=== PATIENT | female | born 1975 | race Caucasian/White ===

== ENCOUNTER 2017-10-10 22:57 | Emergency (ER) | payer OTHER, BC ==
[~2017-10-10] VITALS: Ht 160 cm; Wt 81.0 kg
[~2017-10-10 22:57] MED LIST: ACETTAB3 OR; AMOXICILLIN/CL875 MG OR; AMOXICILLIN/CL875 MG PO; AMOXICILLIN500 MG PO; AMOXICILLIN875 MG PO; AUGMENTIN875TAB OR; AUGMENTIN875TAB PO; AZITHROMYCIN500 MG PO; AZO TABS95 MG PO; BENZONATATE200 MG PO; BIOTIN; CELEXA20 M1 OR; CELEXA20 M1 PO; CELEXA20 MG PO; CIPRO500 MG PO; CIPRODEX1 ML AD; CIPROFLOXACN500 MG PO; CITALOPRAM20 MG PO; CLARITIN10 MG PO; CONCEPT DHA OR; DIFLUCAN150 MG OR; FIORICET PO; FISH OIL1000 MG PO; FLEXERIL OR; FLEXERIL PO; FLONASE NASAL50 MCG; FLUARIX QUADRIV1 INJ IM; HYDROCHLOROT12.5 MG OR; HYDROCHLOROT12.5 MG PO; LIBRAX1 CAP OR; LORTAB 10 PO; LORTAB 1010 MG PO; LORTAB 7.57.5 MG PO; LORTAB5 PO; MACRODANTIN100 MG PO; MEDDOSEPAK OR; MOTRIN600 MG OR; MOTRIN600 MG/TAB PO; MOTRIN800 MG PO; MOTRIN800 MG/TAB PO; MUCINEX600 MG PO; MULTI VIT PO; NORA-BE0.35 MG OR; OCELLA1 TAB PO; OMNICEF300 MG OR; ONDANSETRON4 MG PO; PHENERGAN12.5 MG/TA PO; PRENA PO; PRENATAL1 TAB OR; PRILOSEC OTC20 MG OR; PRILOSEC20 MG/CAP PO; PROVERA5 MG PO; PYRIDIUM200 MG PO; QUATREFO PO; ROCEPHIN 1 GM1 GM IM; ROCEPHIN 1 GM1 GM PO; ROCEPHIN 2250 MG/VIA IM; SERTRALINE HCL50 MG PO; SOLU-MEDROL125 MG IM; SPRINTEC 2828 DAY PO; TAM75CAP PO; TESSALON200 MG PO; TYLENOL 500MG TAB PO; VISTARIL25 MG PO; YASMIN 281 TAB OR; YAZ1 TAB; ZARAH OR; ZEGERID1 CA1; ZOFRAN ODT8 MG SL; ZOLOFT25 MG PO
[2017-10-11 00:46] LABS: URINE BILIRUBIN - DIPSTICK NEGATIVE (NEGATIVE); URINE BLOOD DIPSTICK TRACE-INTACT (NEGATIVE); URINE CLARITY CLEAR; URINE COLOR YELLOW; URINE GLUCOSE - DIPSTICK NEGATIVE (NEGATIVE); URINE KETONE NEGATIVE (NEGATIVE); URINE LEUK ESTERASE NEGATIVE (NEGATIVE); URINE NITRITE - DIPSTICK NEGATIVE (Negative); URINE PROTEIN - DIPSTICK NEGATIVE (NEG-TRACE); URINE SPECIFIC GRAVITY >=1.030; URINE UROBILINOGEN - DIPSTICK 0.2 E.U./dL (0.2)
[2017-10-11 01:05] LABS: HEMATOCRIT 42.2 % (37.0-47.0); IMMATURE GRANULOCYTES 0.3 % (0.0-1.0); MEAN CORPUSCULAR HGB 29.5 pG CALC (26.0-32.0); MEAN CORPUSCULAR HGB CONC 33.2 g/L CALC (32.0-36.0); NEUT# 4.4 thou/uL (2.00-7.15); RED BLOOD COUNT 4.74 mill/uL (4.20-5.60); RED CELL DISTRI WIDTH 13.1 % (11.5-15.5)
[2017-10-11 01:12] LABS: ALBUMIN 4.1 g/dL (3.2-5.0); ALKALINE PHOSPHATASE 73 u/l (38-126); ANION GAP 17 (6-22 (CALC)); BILIRUBIN, TOTAL 0.3 mg/dL (0.0-1.4); BUN 13 mg/dL (7-17); BUN/CREATININE RATIO 21 (12-20 (CALC)); CARBON DIOXIDE 25 mmol/l (22-30); CHLORIDE 105 mmol/l (95-108); CREATININE 0.6 mg/dL (0.5-1.0); GFR > 60 ML/MIN (>=60 (CALC)); GFR FOR AFR.AMER. > 60 ML/MIN (>=60 (CALC)); LIPASE 128 u/l (23-300); SGOT/AST 17 u/l (14-36); SGPT/ALT 30 u/l (9-52); SODIUM 144 mmol/l (137-146); TOTAL PROTEIN 7.5 g/dL (6.3-8.2)
[2017-10-11 01:16] LABS: POTASSIUM 3.4 mmol/l (3.5-5.1)
[2017-10-11 01:36] VITALS: BP 132/88
== END 2017-10-11 01:36 | disposition home or self-care (01) | DRG 605 ==
LOC: ED 22:57
PROVIDERS: Family Medicine
DX: S20.219A Contusion of unspecified front wall of thorax, initial encounter (principal); S10.91XA Abrasion of unspecified part of neck, initial encounter; S50.812A Abrasion of left forearm, initial encounter; S30.811A Abrasion of abdominal wall, initial encounter; S16.1XXA Strain of muscle, fascia and tendon at neck level, initial encounter; V49.40XA Driver injured in collision with unspecified motor vehicles in traffic accident, initial encounter

== ENCOUNTER 2017-12-06 12:07 | Emergency (ER) | payer BC ==
[~2017-12-06] VITALS: Ht 160 cm; Wt 80.0 kg
[2017-12-06 12:50] LABS: HEMATOCRIT 45.8 % (37.0-47.0); HEMOGLOBIN 15.1 g/dl (12.0-16.0); IMMATURE GRANULOCYTES 0.2 % (0.0-1.0); MEAN CELL VOLUME 89.6 fL CALC (80.0-100.0); MEAN CORPUSCULAR HGB 29.5 pG CALC (26.0-32.0); NEUT# 3.36 thou/uL (2.00-7.15); RED BLOOD COUNT 5.11 mill/uL (4.20-5.60); RED CELL DISTRI WIDTH 13.2 % (11.5-15.5)
[2017-12-06 12:50] LABS: URINE BLOOD DIPSTICK NEGATIVE (NEGATIVE); URINE COLOR YELLOW; URINE GLUCOSE - DIPSTICK NEGATIVE (NEGATIVE); URINE KETONE NEGATIVE (NEGATIVE); URINE LEUK ESTERASE NEGATIVE (NEGATIVE); URINE NITRITE - DIPSTICK NEGATIVE (Negative); URINE PROTEIN - DIPSTICK NEGATIVE (NEG-TRACE); URINE SPECIFIC GRAVITY 1.025; URINE UROBILINOGEN - DIPSTICK 0.2 E.U./dL (0.2)
[2017-12-06 12:51] LABS: URINE BILIRUBIN - DIPSTICK SMALL (NEGATIVE); URINE CLARITY CLEAR
[2017-12-06 13:07] LABS: ALBUMIN 4.6 g/dL (3.2-5.0); ALKALINE PHOSPHATASE 77 u/l (38-126); AMYLASE 57 u/l (30-110); ANION GAP 15 (6-22 (CALC)); BILIRUBIN, TOTAL 0.6 mg/dL (0.0-1.4); BUN 10 mg/dL (7-17); BUN/CREATININE RATIO 15 (12-20 (CALC)); CARBON DIOXIDE 25 mmol/l (22-30); CHLORIDE 108 mmol/l (95-108); CREATININE 0.7 mg/dL (0.5-1.0); GFR > 60 ML/MIN (>=60 (CALC)); GFR FOR AFR.AMER. > 60 ML/MIN (>=60 (CALC)); LIPASE 270 u/l (23-300); POTASSIUM 3.8 mmol/l (3.5-5.1); SGOT/AST 20 u/l (14-36); SGPT/ALT 28 u/l (9-52); SODIUM 144 mmol/l (137-146); TOTAL PROTEIN 8.5 g/dL (6.3-8.2)
[2017-12-06 14:46] VITALS: BP 119/76
== END 2017-12-06 14:46 | disposition home or self-care (01) | DRG 761 ==
LOC: ED 12:07
DX: N83.201 Unspecified ovarian cyst, right side (principal); R11.2 Nausea with vomiting, unspecified; R19.7 Diarrhea, unspecified; K42.9 Umbilical hernia without obstruction or gangrene
CPT/HCPCS: Q9967

== ENCOUNTER 2018-02-20 17:31 | Emergency (ER) | payer BC ==
[~2018-02-20] VITALS: Ht 160 cm; Wt 84.0 kg
[2018-02-20 18:04] LABS: HEMATOCRIT 47.6 % (37.0-47.0); HEMOGLOBIN 15.7 g/dl (12.0-16.0); IMMATURE GRANULOCYTES 0.1 % (0.0-5.0); MEAN CORPUSCULAR HGB 29.7 pG CALC (26.0-32.0); NEUT# 4.31 thou/uL (2.00-7.15); RED BLOOD COUNT 5.29 mill/uL (4.20-5.60); RED CELL DISTRI WIDTH 12.7 % (11.5-15.5)
[2018-02-20 18:07] LABS: URINE BILIRUBIN - DIPSTICK NEGATIVE (NEGATIVE); URINE BLOOD DIPSTICK TRACE-LYSED (NEGATIVE); URINE CLARITY CLEAR; URINE COLOR YELLOW; URINE GLUCOSE - DIPSTICK NEGATIVE (NEGATIVE); URINE KETONE NEGATIVE (NEGATIVE); URINE LEUK ESTERASE NEGATIVE (NEGATIVE); URINE NITRITE - DIPSTICK NEGATIVE (Negative); URINE PH 5.5 (4.5-8.0); URINE PROTEIN - DIPSTICK NEGATIVE (NEG-TRACE); URINE SPECIFIC GRAVITY >=1.030; URINE UROBILINOGEN - DIPSTICK 0.2 E.U./dL (0.2)
[2018-02-20 18:12] LABS: ALBUMIN 4.5 g/dL (3.2-5.0); ALKALINE PHOSPHATASE 75 u/l (38-126); ANION GAP 16 (6-22 (CALC)); BILIRUBIN, TOTAL 0.5 mg/dL (0.0-1.4); BUN 10 mg/dL (7-17); BUN/CREATININE RATIO 15 (12-20 (CALC)); CARBON DIOXIDE 24 mmol/l (22-30); CHLORIDE 105 mmol/l (95-108); CREATININE 0.7 mg/dL (0.5-1.0); GFR > 60 ML/MIN (>=60 (CALC)); GFR FOR AFR.AMER. > 60 ML/MIN (>=60 (CALC)); LIPASE 167 u/l (23-300); POTASSIUM 4.2 mmol/l (3.5-5.1); SGOT/AST 25 u/l (14-36); SGPT/ALT 27 u/l (9-52); SODIUM 141 mmol/l (137-146); TOTAL PROTEIN 7.9 g/dL (6.3-8.2)
[2018-02-20 19:00] VITALS: BP 135/98
== END 2018-02-20 19:08 | disposition home or self-care (01) | DRG 392 ==
LOC: ED 17:31
DX: R10.13 Epigastric pain (principal); R11.2 Nausea with vomiting, unspecified; R19.7 Diarrhea, unspecified

== ENCOUNTER 2019-08-03 | Emergency (ER) | payer BC ==
[2019-08-03 18:55] LABS: HEMOGLOBIN 14.4 g/dl (12.0-16.0); IMMATURE GRANULOCYTES 0.3 % (0.0-5.0); MEAN CELL VOLUME 89.8 fL CALC (80.0-100.0); MEAN CORPUSCULAR HGB 29.4 pG CALC (26.0-32.0); MEAN CORPUSCULAR HGB CONC 32.7 g/L CALC (32.0-36.0); NEUT# 4.51 thou/uL (2.00-7.15); RED BLOOD COUNT 4.9 mill/uL (4.20-5.60); RED CELL DISTRI WIDTH 13.2 % (11.5-15.5)
[2019-08-03 19:06] LABS: URINE BILIRUBIN - DIPSTICK NEGATIVE (NEGATIVE); URINE BLOOD DIPSTICK TRACE-INTACT (NEGATIVE); URINE COLOR YELLOW; URINE GLUCOSE - DIPSTICK NEGATIVE (NEGATIVE); URINE KETONE NEGATIVE (NEGATIVE); URINE LEUK ESTERASE NEGATIVE (NEGATIVE); URINE NITRITE - DIPSTICK NEGATIVE (Negative); URINE PROTEIN - DIPSTICK NEGATIVE (NEG-TRACE); URINE SPECIFIC GRAVITY >=1.030; URINE UROBILINOGEN - DIPSTICK 0.2 E.U./dL (0.2)
[2019-08-03 19:40] LABS: ALBUMIN 4.3 g/dL (3.2-5.0); ALKALINE PHOSPHATASE 77 u/l (38-126); ANION GAP 11 (6-22 (CALC)); BILIRUBIN, TOTAL 0.5 mg/dL (0.0-1.4); BUN 8 mg/dL (7-17); BUN/CREATININE RATIO 14 (12-20 (CALC)); CARBON DIOXIDE 27 mmol/l (22-30); CHLORIDE 104 mmol/l (95-108); CREATININE 0.6 mg/dL (0.5-1.0); GFR > 60 ML/MIN (>=60 (CALC)); GFR FOR AFR.AMER. > 60 ML/MIN (>=60 (CALC)); LIPASE 86 u/l (23-300); POTASSIUM 3.8 mmol/l (3.5-5.1); SGOT/AST 20 u/l (14-36); SODIUM 138 mmol/l (137-146); TOTAL PROTEIN 7.5 g/dL (6.3-8.2)
[2019-08-03] MEDS ORDERED: TRAMADOL HCL50 MG PO (19:57)
== END 2019-08-03 20:32 | disposition home or self-care (01) | DRG 446 ==
PROVIDERS: Family Medicine
DX: K82.8 Other specified diseases of gallbladder (principal)

== ENCOUNTER 2019-11-06 03:53 | Emergency (ER) | payer BC ==
[~2019-11-06 03:53] MED LIST changes: +TRAMADOL HCL50 MG PO
[2019-11-06 04:24] LABS: HEMATOCRIT 43.5 % (37.0-47.0); HEMOGLOBIN 14.3 g/dl (12.0-16.0); IMMATURE GRANULOCYTES 0.2 % (0.0-5.0); MEAN CELL VOLUME 89.7 fL CALC (80.0-100.0); MEAN CORPUSCULAR HGB 29.5 pG CALC (26.0-32.0); MEAN CORPUSCULAR HGB CONC 32.9 g/dL CAL (32.0-36.0); NEUT# 4.76 thou/uL (2.00-7.15); RED BLOOD COUNT 4.85 mill/uL (4.20-5.60); RED CELL DISTRI WIDTH 12.6 % (11.5-15.5)
[2019-11-06 04:29] LABS: URINE BILIRUBIN - DIPSTICK NEGATIVE (NEGATIVE); URINE BLOOD DIPSTICK TRACE-INTACT (NEGATIVE); URINE COLOR YELLOW; URINE GLUCOSE - DIPSTICK NEGATIVE (NEGATIVE); URINE KETONE NEGATIVE (NEGATIVE); URINE LEUK ESTERASE NEGATIVE (NEGATIVE); URINE NITRITE - DIPSTICK NEGATIVE (Negative); URINE PROTEIN - DIPSTICK NEGATIVE (NEG-TRACE); URINE SPECIFIC GRAVITY 1.025; URINE UROBILINOGEN - DIPSTICK 0.2 E.U./dL (0.2)
[2019-11-06 04:42] LABS: ALBUMIN 4.1 g/dL (3.2-5.0); ALKALINE PHOSPHATASE 86 u/l (38-126); ANION GAP 11 (6-22 (CALC)); BILIRUBIN, TOTAL 0.3 mg/dL (0.0-1.4); BUN 11 mg/dL (7-17); BUN/CREATININE RATIO 18 (12-20 (CALC)); CARBON DIOXIDE 26 mmol/l (22-30); CHLORIDE 105 mmol/l (95-108); CREATININE 0.6 mg/dL (0.5-1.0); GFR > 60 ML/MIN (>=60 (CALC)); GFR FOR AFR.AMER. > 60 ML/MIN (>=60 (CALC)); LIPASE 123 u/l (23-300); POTASSIUM 4.3 mmol/l (3.5-5.1); SGOT/AST 21 u/l (14-36); SODIUM 138 mmol/l (137-146); TOTAL PROTEIN 7.2 g/dL (6.3-8.2)
[2019-11-06 05:04] LABS: AMYLASE < 30 u/l (30-110)
[2019-11-06] MEDS ORDERED: ONDANSETRON4 MG PO (09:41)
[2019-11-06 09:51] VITALS: BP 117/66
== END 2019-11-06 10:19 | disposition home or self-care (01) | DRG 392 ==
LOC: ED 03:53
PROVIDERS: Family Medicine
DX: R10.32 Left lower quadrant pain (principal); R10.2 Pelvic and perineal pain; R11.2 Nausea with vomiting, unspecified
CPT/HCPCS: Q9967

== ENCOUNTER 2020-10-17 20:08 | Emergency (ER) | payer BC ==
[~2020-10-17] VITALS: Ht 160 cm; Wt 86.0 kg
[2020-10-17 21:13] LABS: IMMATURE GRANULOCYTES 0.3 % (0.0-5.0); MEAN CELL VOLUME 90.1 fL CALC (80.0-100.0); MEAN CORPUSCULAR HGB 29.4 pG CALC (26.0-32.0); MEAN CORPUSCULAR HGB CONC 32.6 g/dL CAL (32.0-36.0); NEUT# 1.97 thou/uL (2.00-7.15); RED BLOOD COUNT 4.77 mill/uL (4.20-5.60)
[2020-10-17 21:13] LABS: URINE BILIRUBIN - DIPSTICK NEGATIVE (NEGATIVE); URINE BLOOD DIPSTICK NEGATIVE (NEGATIVE); URINE COLOR YELLOW; URINE GLUCOSE - DIPSTICK NEGATIVE (NEGATIVE); URINE KETONE NEGATIVE (NEGATIVE); URINE LEUK ESTERASE NEGATIVE (NEGATIVE); URINE PROTEIN - DIPSTICK NEGATIVE (NEG-TRACE); URINE SPECIFIC GRAVITY 1.025; URINE UROBILINOGEN - DIPSTICK 0.2 E.U./dL (0.2)
[2020-10-17 21:16] LABS: URINE NITRITE - DIPSTICK NEGATIVE (Negative)
[2020-10-17 21:32] LABS: ALBUMIN 4.1 g/dL (3.2-5.0); ALKALINE PHOSPHATASE 94 u/l (38-126); ANION GAP 10 (6-22 (CALC)); BILIRUBIN, TOTAL 0.3 mg/dL (0.0-1.4); BUN 10 mg/dL (7-17); BUN/CREATININE RATIO 14 (12-20 (CALC)); CARBON DIOXIDE 28 mmol/l (22-30); CHLORIDE 104 mmol/l (95-108); CPK 82 u/l (30-165); CREATININE 0.7 mg/dL (0.5-1.0); GFR > 60 ML/MIN (>=60 (CALC)); GFR FOR AFR.AMER. > 60 ML/MIN (>=60 (CALC)); POTASSIUM 3.5 mmol/l (3.5-5.1); SGOT/AST 24 u/l (14-36); SODIUM 139 mmol/l (137-146); TOTAL PROTEIN 7.5 g/dL (6.3-8.2)
[2020-10-17 21:36] LABS: D-DIMER 0.83 mg/L (0.19-0.60)
[2020-10-17 21:39] LABS: ACT PARTIAL THROMBO TIME 21.9 SECONDS (20.0-32.5); PROTHROMBIN TIME 10.4 SECONDS (9.0-12.5)
[2020-10-17 22:02] LABS: TSH, 3RD GENERATION 2.14 uIU/mL (0.47 - 4.68)
[2020-10-17] MEDS ORDERED: TRAMADOL HCL50 MG PO (23:19)
[2020-10-17 23:27] VITALS: BP 139/78
== END 2020-10-17 23:33 | disposition home or self-care (01) | DRG 556 ==
LOC: ED 20:08
PROVIDERS: Family Medicine
DX: M25.561 Pain in right knee (principal); R60.0 Localized edema; C50.912 Malignant neoplasm of unspecified site of left female breast; Z79.810 Long term (current) use of selective estrogen receptor modulators (SERMs)
CPT/HCPCS: Q9967

== ENCOUNTER 2021-03-07 15:31 | Observation (INO) | payer BC ==
[~2021-03-07] VITALS: Ht 160 cm; Wt 62.0 kg
--- NOTE | 2021-03-07 15:55 | NUR ---
PT AMBULATED TO ROOM STATES SHE HAS PAIN TO RUQ AND NAUSEA
--- NOTE | 2021-03-07 16:32 | NUR ---
PT MEDICATED PER EMAR
[2021-03-07 16:43] LABS: HEMOGLOBIN 14.1 g/dl (12.0-16.0); MEAN CELL VOLUME 91.7 fL CALC (80.0-100.0); MEAN CORPUSCULAR HGB 30.1 pG CALC (26.0-32.0); MEAN CORPUSCULAR HGB CONC 32.8 g/dL CAL (32.0-36.0); NEUT# 3.76 thou/uL (2.00-7.15); RED BLOOD COUNT 4.69 mill/uL (4.20-5.60); RED CELL DISTRI WIDTH 12.7 % (11.5-15.5)
[2021-03-07 17:04] LABS: ALKALINE PHOSPHATASE 75 u/l (38-126); BUN 7 mg/dL (7-17); BUN/CREATININE RATIO 14 (12-20 (CALC)); CHLORIDE 109 mmol/l (95-108); CREATININE 0.5 mg/dL (0.5-1.0); GFR > 60 ML/MIN (>=60 (CALC)); GFR FOR AFR.AMER. > 60 ML/MIN (>=60 (CALC)); LIPASE 65 u/l (23-300); POTASSIUM 3.6 mmol/l (3.5-5.1); SGOT/AST 25 u/l (14-36); SODIUM 138 mmol/l (137-146); TOTAL PROTEIN 7.5 g/dL (6.3-8.2)
[2021-03-07 17:05] LABS: ANION GAP 13 (6-22 (CALC)); BILIRUBIN, TOTAL 0.5 mg/dL (0.0-1.4); CARBON DIOXIDE 20 mmol/l (22-30)
[2021-03-07 17:22] LABS: URINE BILIRUBIN - DIPSTICK NEGATIVE (NEGATIVE); URINE BLOOD DIPSTICK NEGATIVE (NEGATIVE); URINE COLOR YELLOW; URINE GLUCOSE - DIPSTICK NEGATIVE (NEGATIVE); URINE KETONE 15 mg/dL (NEGATIVE); URINE LEUK ESTERASE NEGATIVE (NEGATIVE); URINE PROTEIN - DIPSTICK NEGATIVE (NEG-TRACE); URINE SPECIFIC GRAVITY >=1.030; URINE UROBILINOGEN - DIPSTICK 0.2 E.U./dL (0.2)
[2021-03-07 17:23] LABS: URINE NITRITE - DIPSTICK NEGATIVE (Negative)
--- NOTE | 2021-03-07 17:35 | NUR ---
PT BACK FROM RADIOLOGY
[2021-03-07] MEDS ORDERED: TAMOXIFEN CITRA10 MG PO (18:11)
[2021-03-07] MEDS ORDERED: ESCITALOPRAM OX10 MG PO (18:12)
--- NOTE | 2021-03-07 18:27 | NUR ---
PT C/O HEARTBURN, INFORMED MD
--- NOTE | 2021-03-07 18:55 | NUR ---
REPORT GIVEN TO NIGHTSHIFT RN, PT HAS NO COMPLAINTS AT THIS TIME
--- NOTE | 2021-03-07 19:45 | NUR ---
PT IS FEELING BETTER LESS PAIN W/P/D NO N/V
--- NOTE | 2021-03-07 20:22 | NUR ---
Reassessment of patient completed. No distress noted.
--- NOTE | 2021-03-07 20:45 | NUR ---
PHONE REPORT TO RUSTAM PATIÑO ON MS
--- NOTE | 2021-03-07 20:48 | NUR ---
PT TRANSPORTED TO [facility] VIA IN IMPROVED STABLE CONDITION
[2021-03-07 21:00] VITALS: BP 158/90
--- NOTE | 2021-03-07 22:00 | NUR ---
PATIENT ADMITTED FROM ER VIA WHEELCHAIR WITH ER STAFF IN ATTENDANCE. PATIENT IS AWAKE ALERT AND ORIENTEDX3. PATIENT IS BEING ADMITTED FOR CHOLECYSTITIS. PATIENT UP AND AMBULATING IN THE ROOM-STEADY ON HER FEET. IN TO BR TO VOID WITHOUT ANY DIFFICULTY. STATES THAT SHE DID HAVE BM THIS MORNING AND IT WAS NORMAL. ABD IS SOFT WITH BS+. LUNGS ARE CLEAR. NO PERIPHERAL EDEMA NOTED. TAKING PO FLUIDS WITHOUT ANY DIFFICULTY. WILL BE NPO AT SC FOR POSS OR TOMORROW-CONSULT WITH DR. NEUMANN IN PLACE. PATIENT WITH IV SITE TO RAC-SITE IS HEALTHY WITH GOOD BLOOD RETURN. IVF NS HUNG AND INFUSING AT 125CC/HR. PATIENT ORIENTED TO ROOM AND SURROUNDINGS. INSTRUCTED ON U SE OF NURSE CALL LIGHT SYSTEM AND TV REMOTE. SAFETY PRECAUTIONS REINFORCED. CALL LIGHT IN REACH. WILL CONT TO MONITOR.
--- NOTE | 2021-03-07 23:56 | NUR ---
PATIENT RESTING IN BED AT THIS TIME-NO COMPLAINTS AT THIS TIME. INSTRUCTED NPO AFTER MIDNIGHT FOR POSSIBLE OR TOMORROW-VERBALIZES UNDERSTANDING. ZOSYN HUNG ORDERED AND INFUSING VIA RAC SITE. CALL LIGHT IN REACH. WILL CONT TO MONITOR.
[2021-03-08] VITALS: BP 99/59
[2021-03-08 04:00] VITALS: BP 96/48
--- NOTE | 2021-03-08 04:49 | NUR ---
PATIENT RESTING IN BED AT THIS TIME-APPEARS SLEEPING WITH EYES CLOSED. RESPS ARE EVEN AND UNLABORED. REMAINS NPO FOR POSSIBLE OR THIS MORNING. IVF NS PATENT AND INFUSING VIA RAC SITE AT 125CC/HR. CALL LLIGHT IN REACH. WILL CONT TO MONITOR.
[2021-03-08 07:25] VITALS: BP 118/80
--- NOTE | 2021-03-08 07:25 | NUR ---
PATIENT LAYING IN BED AT THIS TIME. PATIENT IS CURRENTLY NPO. PATIENT IS ALERT AND ORIENTED X 4 PATIENT STATES SHE HAS NO PAIN AT THIS TIME AND FEELS BETTER THAN SHE DID YESTERDAY. PATIENT DENIES ANY NAUSEA AND OR VOMITTING AT THIS TIME. HOSPITALITY HOST DONE SEE INTERVENTIONS. LUNG FUNES ARE CLEAR AT THIS TIME. WILL CONTINUE TO MONITOR.
--- NOTE | 2021-03-08 08:52 | NUR ---
PATIENT MEDICATED AT THIS TIME FOR UPPER RIGHT ABDOMEN PAIN. 15MG OF TORADOL GIVEN IV AT THIS TIME FOR A PAIN OF 5 OUT OF PAIN SCALE OF 0-10. WILL CONTINUE TO MONITOR.
--- NOTE | 2021-03-08 10:00 | NUR ---
PATIENT UP TO SHOWER AT THIS TIME. DENIES ANY NEEDS AND TOLERATED SHOWER WITHOUT HELP.
--- NOTE | 2021-03-08 11:27 | NUR ---
PATIENT RESTING IN BED AT THIS TIME STATES HER PAIN LEVEL IS A 1 OUT OF THE PAIN SCALE OF 0-10. IV ZOYSIN 3.375GRMS HUNG AT THIS TIME. PATIENT REMAINS NPO UNTIL SEEN BY DR. NEUMANN. PATIENT VERBALIZES UNDERSTANDING OF THIS. SIDERAILS ARE UP X2 CALL LIGHT WITHIN REACH.
--- NOTE | 2021-03-08 11:54 | NUR ---
DR. NEUMANN IN TO SEE PATIENT AT THIS TIME. PATIENT WILL BE ALLOWED TO HAVE CLEAR LIQUIDS UP UNTIL MIDNIGHT THE NPO FOR SURGERY TOMORROW.
[2021-03-08 15:32] VITALS: BP 120/68
[2021-03-08 19:05] VITALS: BP 131/61
--- NOTE | 2021-03-08 19:31 | NUR ---
PATIENT RESTING IN BED AT THIS TIME-AWAKE ALERT AND ORIENTEDX3. PATIENT C/O SOME NAUSEA AND MEDICATED WITH ZOFRAN 4MG IVP ORDERED FOR NAUSEA, IVF PATENT AND INFUSING VIA RIGHT AC SITE AT 125CC/HR. SITE REMAINS HEALTHY T THIS TIME. VOIDING QS CLEAR YELLOW URINE IN BR AND STATES THAT SHE DID HAVE LOOSE BM TODAY. LUNGS ARE CLEAR. ABD IS SOFT WITH ACTIVE BS. FOR OR TOMORROW WITH DR. NEUMANN. NPO AFTER MN TONIGHT. SAFETY PRECAUTIONS REINFORCED. CALL LIGHT IN REACH. WILL CONT TO MONITOR.
--- NOTE | 2021-03-08 23:02 | NUR ---
PATIENT RESTING IN BED AT THIS TIME-APPEARS SLEEPING AT THIS TIME. RESPS EVEN AND UNLABORED. IVF NS PATENT AND INFUSING AT 125CC/HR VIA RAC SITE. CALL LIGHT IN REACH. WILL CONT TO MONITOR.
[2021-03-09] VITALS (11 sets, daily range): BP systolic 99–137; BP diastolic 55–86
--- NOTE | 2021-03-09 00:03 | NUR ---
PATIENT RESTING IN BED AT THIS TIME-ZOSYN HUNG ORDERED. PATIENT STATES THAT THE ZOFRAN HELPED WITH HER NAUSEA AND HEADACHE. PATIENT NOW NPO FOR OR TOMORROW AND VERBALIZES UNDERSTANDING. VOIDING QS CLEAR YELLOW URINE IN BR. CALL LIGHT IN REACH. WILL CONT TO MONITOR.
--- NOTE | 2021-03-09 04:30 | NUR ---
PATIENT RESTING IN BED WITH EYES CLOSED. APPEARS SLEEPING WITH EYES CLOSED. REMAINS NPO FOR OR TODAY. IVF NS PATENT AND INFUSING VIA RAC SITE. CALL LIGHT IN REACH. WILL CONT TO MONITOR.
[2021-03-09 05:12] LABS: HEMATOCRIT 38.7 % (37.0-47.0); HEMOGLOBIN 12.7 g/dl (12.0-16.0); IMMATURE GRANULOCYTES 0.3 % (0.0-5.0); MEAN CELL VOLUME 92.4 fL CALC (80.0-100.0); MEAN CORPUSCULAR HGB 30.3 pG CALC (26.0-32.0); MEAN CORPUSCULAR HGB CONC 32.8 g/dL CAL (32.0-36.0); NEUT# 1.58 thou/uL (2.00-7.15); RED BLOOD COUNT 4.19 mill/uL (4.20-5.60); RED CELL DISTRI WIDTH 12.9 % (11.5-15.5)
[2021-03-09 05:28] LABS: ANION GAP 10 (6-22 (CALC)); BUN 5 mg/dL (7-17); BUN/CREATININE RATIO 9 (12-20 (CALC)); CARBON DIOXIDE 21 mmol/l (22-30); CHLORIDE 112 mmol/l (95-108); CREATININE 0.6 mg/dL (0.5-1.0); GFR > 60 ML/MIN (>=60 (CALC)); GFR FOR AFR.AMER. > 60 ML/MIN (>=60 (CALC)); SODIUM 139 mmol/l (137-146)
--- NOTE | 2021-03-09 07:10 | NUR ---
PATIENT RESTING IN BED AT THIS TIME. DENEIS ANY PAIN AT THIS TIME. PATIENT HAS BEEN NPO SINCE MIDNIGHT AEROGRAPHER DONE SEE INTERVENTIONS. LUNG FUNES REMAIN CLEAR. NO NAUSEA OR VOMITTING NOTED. SIDERAILS ARE UP AND CALL LIGHT WITHIN REACH.
--- NOTE | 2021-03-09 12:11 | NUR ---
PATIENT WAITING ON SURGERY AND IS IN STABLE CONDITION STATES HER PAIN LEVEL IS ONLY A 1 AT THIS TIME. WILL CONTINUE TO MONITOR.
[2021-03-09] MEDS ORDERED: FLEXERIL5 M1 PO (13:06)
[2021-03-09] MEDS ORDERED: MULTIVITAMIN1 TA1 (13:08)
[2021-03-09] MEDS ORDERED: HYDROCHLOROT25 MG PO (13:09)
[2021-03-09] MEDS ORDERED: MAXALT10 MG PO (13:11)
--- NOTE | 2021-03-09 14:53 | NUR ---
OR CALLED AT THIS TIME STATED TO PREPARE PATIENT FOR SURGERY AT THIS TIME. PATIENT INFORMED THAT SURGERY WILL BE UP TO TAKE HER. PATIENT REMOVED ALL UNDER GARMENTS AND NO RINGS OR JEWERLY ON PATIENT AT THIS TIME. PATIENT ADVISED TO REMOVE UNDERWARE WELL. PATIENT VITALS TAKEN T. 99.8 P. 73 R. 20 AND BP IS 132/81 AND SPO2 ON ROOM AIR IS 98%.
--- NOTE | 2021-03-09 15:04 | NUR ---
PATIENT TAKEN DOWN TO SURGERY AT THIS TIME.
--- NOTE | 2021-03-09 16:12 | NUR ---
PATIENT REMAINS DOWN IN SURGERY AT THIS TIME.
--- NOTE | 2021-03-09 18:00 | NUR ---
RECEIVED PATIENT BACK FROM PACU AT THIS TIME PATIENT ASSISTED TO BED BY ERNESTO PATIÑO AND VON PATIÑO AND TELECOM SPECIALIST'S. PATIENT THEN ASSISTED TO BEDSIDE COMMODE AND VOIDED 650ML. PATIENT RETURNED BACK TO BED. HAROON LONGORIA ASSESSED ABDOMINAL SURGICAL SITES AND NOTED FOUR LAP SITES 3 ON RIGHT SIDE ABDOMINAL WALL DRESSINGS DRY AND INTACT AND ONE BELOW THE UMBILICUS DRY AND INTACT. PATIENT COMPLAINING OF PAIN "7" OUT OF 10 ON UPPER RIGHT ABD. QUAD 15MG OF TORADOL GIVEN AT THIS TME. AND ICE CHIPS. PATIENT ON 2 LITERS OF 02 AT THIS TIME AND SPO2 IS 98%. BP IS CURRENTLY 137/86 HR OF 86. SIDERAILS ARE UP CALL LIGHT IS WITHIN REACH. PATIENT IV IS PATENT .9NS/AT 125 AN HOUR. WILL CONTINUE TO MONITOR. PATIENT TOLERATING ICE CHIPS AT THIS TIME.
--- NOTE | 2021-03-09 20:00 | NUR ---
PHYSICAL ASSESMENT COMPLETE. PT CURRENTLY C/O PAIN AND DISCOMFORT. dR HENDERSON CONSULTED. MADE MORPHINE AVAILABLE FOR PT. SCHEDULED MEDICATIONS AND PRN MEDICATION ADMINISTERED, SEE E-MAR. PT DENIES ANY NEEDS AT THIS TIME. PLAN OF CARE REVIEWED, PT DENIES QUESTIONS, VERBALIZES UNDERSTANDING. ITEMS WITHIN REACH, BED LOCKED IN LOW POSITION W/ BEDRAILS UP X2. CALL CHOI WITHIN REACH, AGREES TO CALL PRN.
--- NOTE | 2021-03-09 23:39 | NUR ---
PT C/O NAUSEA. IV ZOFRAN PROVIDED. WILL CONTINUE TO MONITOR.
--- NOTE | 2021-03-10 | NUR ---
PT LAYING IN BED WITH EYES CLOSED, APPEARS TO BE SLEEPING, APPEARS COMFORTABLE AND IN NO DISTRESS. RESPIRATIONS REGULAR AND UNLABORED. ITEMS REMAIN WITHIN REACH, CALL CHOI REMAINS WITHIN REACH. BED REMAINS LOCKED AND IN LOW POSITION WITH BEDRAILS UP X2. WILL CONTINUE TO MONITOR.
--- NOTE | 2021-03-10 01:45 | NUR ---
PT EXPERIENCING PAIN. WALKED PT UP AND AND DOWN THE HALLWAY TO ENCOURAGE GI MOVEMENT. PT REPORTS EXERCISE HAS RELEIVED ABDOMINAL PRESSURE. PRN TORADOL GIVEN FOR PAIN. WILL CONTINUE TO MONITOR.
[2021-03-10 04:00] VITALS: BP 112/63
--- NOTE | 2021-03-10 04:12 | NUR ---
PT RESTING IN BED, C/O PAIN AND DISCOMFORT. PRN MEDICATION PROVIDED. RESP EVEN AND UNLABORED. CALL LIGHT IN REACH, CONTINUE TO MONITOR.
[2021-03-10 08:00] VITALS: BP 123/78
--- NOTE | 2021-03-10 08:13 | NUR ---
PT SITTING ON CHAIR EATING BREAKFAST. A&O X4, VITAL SIGNS WERE PERFORMED. PT REPORTS HAVING EXCESS GAS WITH NO DISCOMFORT. CALL LIGHT WITHIN REACH.
--- NOTE | 2021-03-10 09:34 | NUR ---
PT AMBULATING IN HALLWAY. ZOFRAN GIVEN FOR NAUSEA/ PRN TORADOL. STEADY GAIT OBSERVED.
[2021-03-10 11:06] VITALS: BP 133/60
[2021-03-10] MEDS ORDERED: ZOFRAN4 MG/TAB PO (11:25)
[2021-03-10] MEDS ORDERED: HYDROCO/APAP1 TA9 PO ×2 (11:26→13:13)
--- NOTE | 2021-03-10 12:15 | NUR ---
PT SITTING IN CHAIR EATING LUNCH. WAITING TO BE DISCHARGED. NO DISTRESS NOTED. CALL LIGHT IS WITHIN REACH.
--- NOTE | 2021-03-10 13:35 | NUR ---
Discharge instructions given. Patient verbalizes understanding of same. Discharged in stable condition via Wheelchair to Home with staff. All belongings sent with pt. Medications sent to pharmacy; pt advised to call if any problems arise with medications.
== END 2021-03-10 13:35 | disposition home or self-care (01) | DRG 419 ==
LOC: ED 15:31 → ED-I 18:01 → ED 18:17 → MS2 18:18
PROVIDERS: Family Medicine; ADMIT Internal Medicine; ATTEND Internal Medicine
PROC: 0FT44ZZ Resection of Gallbladder, Percutaneous Endoscopic Approach (ICD-10-PCS; principal; 2021-03-09)
DX: K81.0 Acute cholecystitis (principal); F41.9 Anxiety disorder, unspecified; Z92.3 Personal history of irradiation; Z85.3 Personal history of malignant neoplasm of breast; Z20.822 Contact with and (suspected) exposure to COVID-19
CPT/HCPCS: G0378; J0131; J1610; Q9967; S0164

== ENCOUNTER 2021-03-11 09:39 | Emergency (ER) | payer BC ==
[~2021-03-11] VITALS: Ht 160 cm; Wt 88.0 kg
[~2021-03-11 09:39] MED LIST changes: +ESCITALOPRAM OX10 MG PO; +FLEXERIL5 M1 PO; +HYDROCHLOROT25 MG PO; +HYDROCO/APAP1 TA9 PO; +MAXALT10 MG PO; +MULTIVITAMIN1 TA1; +TAMOXIFEN CITRA10 MG PO; +ZOFRAN4 MG/TAB PO
[2021-03-11 11:21] LABS: IMMATURE GRANULOCYTES 0.2 % (0.0-5.0); MEAN CELL VOLUME 93.5 fL CALC (80.0-100.0); MEAN CORPUSCULAR HGB 30.5 pG CALC (26.0-32.0); MEAN CORPUSCULAR HGB CONC 32.7 g/dL CAL (32.0-36.0); NEUT# 3.54 thou/uL (2.00-7.15); RED BLOOD COUNT 3.21 mill/uL (4.20-5.60); RED CELL DISTRI WIDTH 13.1 % (11.5-15.5)
[2021-03-11 11:22] LABS: HEMOGLOBIN 9.8 g/dl (12.0-16.0)
[2021-03-11 11:40] LABS: ALBUMIN 3.6 g/dL (3.2-5.0); ALKALINE PHOSPHATASE 54 u/l (38-126); ANION GAP 9 (6-22 (CALC)); BILIRUBIN, TOTAL 0.5 mg/dL (0.0-1.4); BUN 11 mg/dL (7-17); BUN/CREATININE RATIO 16 (12-20 (CALC)); CHLORIDE 109 mmol/l (95-108); CREATININE 0.7 mg/dL (0.5-1.0); GFR > 60 ML/MIN (>=60 (CALC)); GFR FOR AFR.AMER. > 60 ML/MIN (>=60 (CALC)); LIPASE 75 u/l (23-300); SGOT/AST 35 u/l (14-36); SODIUM 141 mmol/l (137-146); TOTAL PROTEIN 6.6 g/dL (6.3-8.2)
[2021-03-11 11:41] LABS: CARBON DIOXIDE 27 mmol/l (22-30)
[2021-03-11 12:03] LABS: URINE BILIRUBIN - DIPSTICK NEGATIVE (NEGATIVE); URINE BLOOD DIPSTICK NEGATIVE (NEGATIVE); URINE COLOR YELLOW; URINE GLUCOSE - DIPSTICK NEGATIVE (NEGATIVE); URINE KETONE NEGATIVE (NEGATIVE); URINE LEUK ESTERASE NEGATIVE (NEGATIVE); URINE PH 7.5 (4.5-8.0); URINE PROTEIN - DIPSTICK NEGATIVE (NEG-TRACE); URINE UROBILINOGEN - DIPSTICK 0.2 E.U./dL (0.2)
[2021-03-11 12:06] LABS: URINE NITRITE - DIPSTICK NEGATIVE (Negative)
[2021-03-11 13:14] VITALS: BP 138/84
== END 2021-03-11 13:20 | disposition home or self-care (01) | DRG 605 ==
LOC: ED 09:39
PROVIDERS: Family Medicine
DX: S30.1XXA Contusion of abdominal wall, initial encounter (principal); E66.3 Overweight; F41.9 Anxiety disorder, unspecified; X58.XXXA Exposure to other specified factors, initial encounter; Z90.49 Acquired absence of other specified parts of digestive tract; Z85.3 Personal history of malignant neoplasm of breast; Z92.3 Personal history of irradiation
CPT/HCPCS: Q9967

== ENCOUNTER 2021-05-17 06:54 | Emergency (ER) | payer BC ==
[~2021-05-17] VITALS: Ht 160 cm; Wt 90.0 kg
[2021-05-17 08:27] LABS: HEMATOCRIT 45.8 % (37.0-47.0); HEMOGLOBIN 14.8 g/dl (12.0-16.0); MEAN CELL VOLUME 90.5 fL CALC (80.0-100.0); MEAN CORPUSCULAR HGB 29.2 pG CALC (26.0-32.0); MEAN CORPUSCULAR HGB CONC 32.3 g/dL CAL (32.0-36.0); NEUT# 2.45 thou/uL (2.00-7.15); RED BLOOD COUNT 5.06 mill/uL (4.20-5.60); RED CELL DISTRI WIDTH 12.9 % (11.5-15.5)
[2021-05-17 08:40] LABS: ALKALINE PHOSPHATASE 70 u/l (38-126); BILIRUBIN, TOTAL 0.4 mg/dL (0.0-1.4); BUN 6 mg/dL (7-17); BUN/CREATININE RATIO 9 (12-20 (CALC)); CHLORIDE 106 mmol/l (95-108); CREATININE 0.7 mg/dL (0.5-1.0); GFR > 60 ML/MIN (>=60 (CALC)); GFR FOR AFR.AMER. > 60 ML/MIN (>=60 (CALC)); LIPASE 90 u/l (23-300); SGOT/AST 27 u/l (14-36); SODIUM 139 mmol/l (137-146)
[2021-05-17 08:44] LABS: ANION GAP 15 (6-22 (CALC)); CARBON DIOXIDE 21 mmol/l (22-30); POTASSIUM 3.1 mmol/l (3.5-5.1)
[2021-05-17 09:53] LABS: URINE BILIRUBIN - DIPSTICK NEGATIVE (NEGATIVE); URINE BLOOD DIPSTICK NEGATIVE (NEGATIVE); URINE COLOR YELLOW; URINE GLUCOSE - DIPSTICK NEGATIVE (NEGATIVE); URINE KETONE TRACE mg/dL (NEGATIVE); URINE LEUK ESTERASE NEGATIVE (NEGATIVE); URINE PROTEIN - DIPSTICK TRACE mg/dL (NEG-TRACE); URINE SPECIFIC GRAVITY >=1.030; URINE UROBILINOGEN - DIPSTICK 0.2 E.U./dL (0.2)
[2021-05-17 09:55] LABS: URINE NITRITE - DIPSTICK NEGATIVE (Negative)
[2021-05-17] MEDS ORDERED: ZOFRAN4 MG/TAB PO (10:08)
[2021-05-17 10:13] VITALS: BP 130/74
== END 2021-05-17 10:30 | disposition home or self-care (01) | DRG 179 ==
LOC: ED 06:54
DX: U07.1 COVID-19 (principal); J40 Bronchitis, not specified as acute or chronic; E86.0 Dehydration; E87.6 Hypokalemia; F41.9 Anxiety disorder, unspecified; Z85.3 Personal history of malignant neoplasm of breast

== ENCOUNTER 2021-09-15 09:55 | Emergency (ER) | payer BC ==
[~2021-09-15] VITALS: Ht 160 cm; Wt 97.0 kg
[2021-09-15] VITALS (9 sets, daily range): BP systolic 111–146; BP diastolic 65–116
[2021-09-15 10:43] LABS: HEMATOCRIT 41.1 % (37.0-47.0); HEMOGLOBIN 13.5 g/dl (12.0-16.0); IMMATURE GRANULOCYTES 0.2 % (0.0-5.0); MEAN CELL VOLUME 91.7 fL CALC (80.0-100.0); MEAN CORPUSCULAR HGB 30.1 pG CALC (26.0-32.0); MEAN CORPUSCULAR HGB CONC 32.8 g/dL CAL (32.0-36.0); NEUT# 2.33 thou/uL (2.00-7.15); RED BLOOD COUNT 4.48 mill/uL (4.20-5.60); RED CELL DISTRI WIDTH 12.8 % (11.5-15.5)
[2021-09-15 11:04] LABS: ALBUMIN 3.6 g/dL (3.2-5.0); ALKALINE PHOSPHATASE 83 u/l (38-126); ANION GAP 8 (6-22 (CALC)); BILIRUBIN, TOTAL 0.3 mg/dL (0.0-1.4); BUN 8 mg/dL (7-17); BUN/CREATININE RATIO 13 (12-20 (CALC)); CARBON DIOXIDE 24 mmol/l (22-30); CHLORIDE 111 mmol/l (95-108); CREATININE 0.6 mg/dL (0.5-1.0); GFR > 60 ML/MIN (>=60 (CALC)); GFR FOR AFR.AMER. > 60 ML/MIN (>=60 (CALC)); LIPASE 99 u/l (23-300); POTASSIUM 3.7 mmol/l (3.5-5.1); SGOT/AST 24 u/l (14-36); SODIUM 139 mmol/l (137-146); TOTAL PROTEIN 6.8 g/dL (6.3-8.2)
[2021-09-15] MEDS ORDERED: HYDROCO/APAP1 TA9 PO (14:11)
== END 2021-09-15 15:05 | disposition home or self-care (01) | DRG 313 ==
LOC: ED 09:55
DX: R07.89 Other chest pain (principal); M79.7 Fibromyalgia; Z85.3 Personal history of malignant neoplasm of breast; Z20.822 Contact with and (suspected) exposure to COVID-19
CPT/HCPCS: Q9967

== ENCOUNTER 2022-01-12 08:59 | Day surgery (SDC) | payer BC ==
[~2022-01-12] VITALS: Ht 160 cm; Wt 91.6 kg
[~2022-01-12 08:59] MED LIST changes: +CELECOXIB200 MG PO; +DULOXETINE HCL20 MG PO; +GABAPENTIN300 M2 PO; +[UNRECOGNIZED DRUG - OTHER]
[2022-01-12] MEDS ORDERED: PERCOCET 5/321 COMBO PO (11:14)
[2022-01-12 12:44] VITALS: BP 158/81
== END 2022-01-12 12:35 | disposition home or self-care (01) | DRG 355 ==
LOC: ORM 08:59
PROVIDERS: ATTEND Surgery
PROC: 0WUF0JZ Supplement Abdominal Wall with Synthetic Substitute, Open Approach (ICD-10-PCS; principal; 2022-01-12)
DX: K42.9 Umbilical hernia without obstruction or gangrene (principal); M62.08 Separation of muscle (nontraumatic), other site; Z85.3 Personal history of malignant neoplasm of breast
CPT/HCPCS: C1781; J0131; J1100

== ENCOUNTER 2022-06-16 05:12 | Emergency (ER) | payer BC ==
[~2022-06-16] VITALS: Ht 160 cm; Wt 97.0 kg
[~2022-06-16 05:12] MED LIST changes: +PERCOCET 5/321 COMBO PO
[2022-06-16 05:29] VITALS: BP 133/92
[2022-06-16 05:45] VITALS: BP 148/86
[2022-06-16 06:09] LABS: URINE BILIRUBIN - DIPSTICK NEGATIVE (NEGATIVE); URINE BLOOD DIPSTICK NEGATIVE (NEGATIVE); URINE COLOR YELLOW; URINE GLUCOSE - DIPSTICK NEGATIVE (NEGATIVE); URINE KETONE NEGATIVE (NEGATIVE); URINE LEUK ESTERASE NEGATIVE (NEGATIVE); URINE PROTEIN - DIPSTICK NEGATIVE (NEG-TRACE); URINE SPECIFIC GRAVITY 1.025; URINE UROBILINOGEN - DIPSTICK 0.2 E.U./dL (0.2)
[2022-06-16 06:11] LABS: URINE NITRITE - DIPSTICK NEGATIVE (Negative)
[2022-06-16 07:33] LABS: BASO% 0.4 % (0-3); EOS% 4.2 % (0-8); HEMATOCRIT 40.4 % (37.0-47.0); HEMOGLOBIN 13.6 g/dl (12.0-16.0); MEAN CELL VOLUME 89.2 fL CALC (80.0-100.0); MEAN CORPUSCULAR HGB CONC 33.7 g/dL CAL (32.0-36.0); NEUT# 2.47 thou/uL (2.00-7.15); NEUT% 52.4 % (42-76); RED BLOOD COUNT 4.53 mill/uL (4.20-5.60)
[2022-06-16 07:46] LABS: ALBUMIN 3.8 g/dL (3.2-5.0); ALKALINE PHOSPHATASE 92 u/l (38-126); ANION GAP 8 (6-22 (CALC)); BUN 8 mg/dL (7-17); BUN/CREATININE RATIO 12 (12-20 (CALC)); CARBON DIOXIDE 28 mmol/l (22-30); CHLORIDE 107 mmol/l (95-108); CREATININE 0.6 mg/dL (0.5-1.0); GFR FOR AFR.AMER. > 60 ML/MIN (>=60 (CALC)); GFR OTHER RACES > 60 ML/MIN (>=60 (CALC)); POTASSIUM 4.3 mmol/l (3.5-5.1); SGOT/AST 25 u/l (14-36); SODIUM 138 mmol/l (137-146); TOTAL PROTEIN 6.5 g/dL (6.3-8.2)
[2022-06-16 07:48] LABS: BILIRUBIN, TOTAL 0.1 mg/dL (0.0-1.4)
[2022-06-16 08:17] LABS: TSH, 3RD GENERATION 1.39 uIU/mL (0.47 - 4.68)
[2022-06-16 09:42] VITALS: BP 148/86
== END 2022-06-16 09:20 | disposition home or self-care (01) | DRG 552 ==
LOC: ED 05:12
PROVIDERS: Emergency Medicine
DX: M54.9 Dorsalgia, unspecified (principal); E04.1 Nontoxic single thyroid nodule; M54.2 Cervicalgia

== ENCOUNTER 2022-07-12 10:51 | Emergency (ER) | payer BC ==
[2022-07-12] VITALS (68 sets, daily range): BP systolic 115–163; BP diastolic 64–138
[~2022-07-12] VITALS: Ht 160 cm; Wt 100.0 kg
[2022-07-12] MEDS ORDERED: MEDDOSEPAK PO (13:06)
[2022-07-12] MEDS ORDERED: DIPHENHYDRAM50 M2 PO (13:08)
[2022-07-12] MEDS ORDERED: TIZANIDINE HYDRO2 MG PO (13:34)
== END 2022-07-12 13:50 | disposition home or self-care (01) | DRG 916 ==
LOC: ED 10:51
DX: T78.3XXA Angioneurotic edema, initial encounter (principal); T50.8X5A Adverse effect of diagnostic agents, initial encounter; Y92.238 Other place in hospital as the place of occurrence of the external cause; Z85.3 Personal history of malignant neoplasm of breast; R00.0 Tachycardia, unspecified

== ENCOUNTER 2022-10-30 19:40 | Emergency (ER) | payer BC ==
[~2022-10-30] VITALS: Ht 160 cm; Wt 105.0 kg
[~2022-10-30 19:40] MED LIST changes: +DIPHENHYDRAM50 M2 PO; +MEDDOSEPAK PO; +TIZANIDINE HYDRO2 MG PO
[2022-10-30] MEDS ORDERED: PROTONIX40 M2 PO (20:15)
[2022-10-30 21:02] LABS: BASO% 0.3 % (0-3); EOS% 4.3 % (0-8); HEMATOCRIT 44.2 % (37.0-47.0); HEMOGLOBIN 14.2 g/dl (12.0-16.0); IMMATURE GRANULOCYTES 0.2 % (0.0-5.0); LYMPH% 34.7 % (15-41); MEAN CELL VOLUME 89.3 fL CALC (80.0-100.0); MEAN CORPUSCULAR HGB 28.7 pG CALC (26.0-32.0); MEAN CORPUSCULAR HGB CONC 32.1 g/dL CAL (32.0-36.0); MONO% 7.1 % (2-13); NEUT# 3.25 thou/uL (2.00-7.15); NEUT% 53.4 % (42-76); RED BLOOD COUNT 4.95 mill/uL (4.20-5.60)
[2022-10-30 21:03] LABS: URINE BILIRUBIN - DIPSTICK NEGATIVE (NEGATIVE); URINE BLOOD DIPSTICK NEGATIVE (NEGATIVE); URINE COLOR YELLOW; URINE GLUCOSE - DIPSTICK NEGATIVE (NEGATIVE); URINE KETONE NEGATIVE (NEGATIVE); URINE LEUK ESTERASE NEGATIVE (NEGATIVE); URINE PROTEIN - DIPSTICK NEGATIVE (NEG-TRACE); URINE UROBILINOGEN - DIPSTICK 0.2 E.U./dL (0.2)
[2022-10-30 21:06] LABS: URINE NITRITE - DIPSTICK NEGATIVE (Negative)
[2022-10-30 21:16] LABS: ALBUMIN 4.6 g/dL (3.2-5.0); ALKALINE PHOSPHATASE 112 u/l (38-126); ANION GAP 12 (6-22 (CALC)); BILIRUBIN, TOTAL 0.2 mg/dL (0.02-1.3); BUN 11 mg/dL (7-17); BUN/CREATININE RATIO 16 (12-20 (CALC)); CARBON DIOXIDE 26 mmol/l (22-30); CHLORIDE 107 mmol/l (95-108); CREATININE 0.7 mg/dL (0.5-1.0); GFR FOR AFR.AMER. > 60 ML/MIN (>=60 (CALC)); GFR OTHER RACES > 60 ML/MIN (>=60 (CALC)); LIPASE 83 u/l (23-300); POTASSIUM 3.7 mmol/l (3.5-5.1); SGOT/AST 30 u/l (14-36); SODIUM 140 mmol/l (137-146); TOTAL PROTEIN 7.9 g/dL (6.3-8.2)
[2022-10-31 01:08] VITALS: BP 127/74
== END 2022-10-31 01:16 | disposition home or self-care (01) | DRG 392 ==
LOC: ED 19:40
PROVIDERS: Family Medicine
DX: R10.11 Right upper quadrant pain (principal); R10.12 Left upper quadrant pain; F41.9 Anxiety disorder, unspecified; Z85.3 Personal history of malignant neoplasm of breast
CPT/HCPCS: Q9967; S0164